=== PATIENT | male | born 1975 | race African-American/Black ===

== ENCOUNTER → 2018-01-20 | Outpatient (CLI) | payer BC ==
[~2018-01-20] MED LIST: DIATRIZOATE MEGLUMINE 300ML INFUS BTL UR ONE
== END | disposition home or self-care (01) ==
LOC: RAD 09:21
PROVIDERS: ATTEND Internal Medicine Nephrology
DX: N32.3 Diverticulum of bladder (principal); R33.8 Other retention of urine
CPT/HCPCS: 74455; Q9958; A4315

== ENCOUNTER 2018-09-28 17:40 | Emergency (ER) | payer BC ==
[~2018-09-28] VITALS: Ht 188 cm; Wt 98.0 kg
[2018-09-28] MEDS ORDERED: SODIUM CHLORIDE 0.9% 1,000 ML IV ONE (20:20)
[2018-09-28 21:07] LABS: BASOPHILS % 0.7 % (0.0-2.0); EOSINOPHILS % 2.6 % (0.0-5.0); HEMATOCRIT. 41.7 % (42.0-52.0); LYMPHOCYTES % 48.8 % (20.0-50.0); MEAN CORPUSCULAR HEMOGLOBIN 29.9 pg (28.0-32.0); MEAN CORPUSCULAR VOLUME 88.8 fL (80.0-94.0); MEAN PLATELET VOLUME 6.5 fl (7.4-10.4); MONOCYTES % 11.8 % (2.0-8.0); NEUTROPHILS % 36.1 % (40.0-76.0); PLATELET 278 x1000/uL (130-400); RED CELL DISTRIBUTION WIDTH 13.6 % (11.6-14.6)
[2018-09-28 21:09] LABS: CHLORIDE 104 mEq/L (98-107)
[2018-09-28 23:04] VITALS: BP 149/80
== END 2018-09-28 23:06 | disposition home or self-care (01) ==
LOC: ER 17:40
DX: R55 Syncope and collapse (principal); D72.819 Decreased white blood cell count, unspecified; I48.91 Unspecified atrial fibrillation; R53.1 Weakness; R42 Dizziness and giddiness; Z98.890 Other specified postprocedural states
CPT/HCPCS: 36415; 70450; 80053; 85025; 93005; 96360; 99284; J7030; Z7610